=== PATIENT | female | born 1960 | race Two or more races ===

== ENCOUNTER → 2025-05-17 | Outpatient (CLI) | payer MEDICARE, MEDICAID, SELFPAY ==
--- NOTE | 2025-05-17 12:50 | XR_ITS ---
Examination: Bone densitometry Date and time of exam: May 17, 2025, 12:30 p.m. Technique: Lumbar spine and hip total bone mineralization values of an calculated. Peak reference and age match control results have been displayed. Findings: Lumbar spine total bone mineralization is 0.944 gm/cm2. This is 0.9 standard deviations below peak reference. This is 29 standard deviations above age-matched controls. Hip total bone mineralization is 0.878 gm/cm2 This is 0.6 standard deviations below peak reference. This is 0.5 standard deviations below age-matched controls Impression: There is normal mineralization based on lumbar spine measurements. There is osteopenia based on hip measurements
== END | disposition home or self-care (01) ==
LOC: CDIM 11:55
PROVIDERS: Referring Provider Physician Assistant; Visit Provider Physician Assistant
DX: Z13.820 Encounter for screening for osteoporosis (principal); M85.88 Other specified disorders of bone density and structure, other site
CPT/HCPCS: 77080